=== PATIENT | female | born 1975 | race African-American/Black ===

== ENCOUNTER 2020-06-17 11:50 | Outpatient (CLI) | payer BC, SELFPAY ==
[2020-06-17 13:16] LABS: HIV 1/2 Ab P24 Ag Result Negative (Negative)
[2020-06-17 13:49] LABS: Hepatitis B Surface Antigen Negative (Negative)
[2020-06-17 13:54] LABS: HAV RESULT Negative (Negative); Hepatitis B Core IgM Result Negative (Negative)
[2020-06-17 14:06] LABS: Hepatitis C Virus Antibody Negative (Negative)
[2020-06-19 07:45] LABS: Rapid Plasma Reagin Non-Reactive (NonReactive)
== END 2020-06-17 11:51 | disposition home or self-care (01) ==
PROVIDERS: PCP Family Medicine; Visit Provider Obstetrics & Gynecology
DX: Z11.3 Encounter for screening for infections with a predominantly sexual mode of transmission (principal)
CPT/HCPCS: 36415; 80074; 86592; 86703; G0432

== ENCOUNTER 2020-06-24 08:11 | Outpatient (CLI) | payer BC, SELFPAY ==
--- NOTE | ~2020-06-24 | MM_ITS ---
EXAMINATION: MM screening beau BI w lena HISTORY: Screening mammogram TECHNIQUE: Craniocaudal and mediolateral oblique 3-D tomosynthesis images were obtained and synthetic 2-D images were generated. CAD analysis was submitted and interpreted. COMPARISON: No prior mammogram is available for comparison at this institution. BREAST PARENCHYMAL COMPOSITION: There are scattered areas of fibroglandular density. FINDINGS: There is an 8 millimeter low-density circumscribed mass situated posteriorly in the central right breast lateral to the mid sagittal plane (CC Tomosynthesis image 34/67). Diagnostic right mamm ogram and right breast ultrasound examination are recommended. Otherwise there is no evidence of suspicious mass, calcification, or architectural distortion to sugg est malignancy in either breast. change. IMPRESSION: 1. 8 mm circumscribed right breast mass 2. Diagnostic right mammogram and right breast ultrasound examination are recommended. BI-RADS Category 0: Incomplete: Needs additional imaging evaluation. Reviewed, dictated and finalized at location A. IMPRESSION: 1. 8 mm circumscribed right breast mass 2. Diagnostic right mammogram and right breast ultrasound examination are recom mended. BI-RADS Category 0: Incomplete: Needs additional imaging evaluation.
== END 2020-06-24 08:12 | disposition home or self-care (01) ==
PROVIDERS: PCP Family Medicine; Visit Provider Obstetrics & Gynecology
DX: Z12.31 Encounter for screening mammogram for malignant neoplasm of breast (principal); R92.8 Other abnormal and inconclusive findings on diagnostic imaging of breast
CPT/HCPCS: 77063; 77067

== ENCOUNTER 2020-07-13 16:48 | Outpatient (CLI) | payer BC, SELFPAY ==
[2020-07-13 17:06] LABS: Hematocrit 30.6 % (37.0-47.0); Hemoglobin 9.2 g/dL (12.0-15.0); Mean Corpuscular HGB Conc 30.1 g/dl (32-36); Mean Corpuscular Hemoglobin 21.6 pg (26-34); Platelet Count Result 380 k/mm3 (150-375); Red Blood Count 4.25 M/mm3 (4.2-5.4); Red Cell Distribution Width 15.3 % (11.5-14.5); White Blood Count 7.6 K/mm3 (4.5-10.0)
[2020-07-13 17:55] LABS: Free T4 Free Thyroxine 0.74 ng/mL (0.78-2.19)
== END 2020-07-13 16:49 | disposition home or self-care (01) ==
PROVIDERS: PCP Family Medicine; Visit Provider Obstetrics & Gynecology Gynecology
DX: N93.8 Other specified abnormal uterine and vaginal bleeding (principal)
CPT/HCPCS: 36415; 84146; 84439; 84443; 85027

== ENCOUNTER 2020-07-21 15:48 | Outpatient (CLI) | payer BC, SELFPAY ==
--- NOTE | ~2020-07-21 | US_ITS ---
EXAMINATION: US pelvic complete w TV EXAM DATE: 07/21/2020 16:22 INDICATION: Abnormal uterine bleeding. TECHNIQUE: Pelvic transabdominal and transvaginal sonogram was performed. There are multiple graysca le and Doppler images available for interpretation. There is no prior study for comparison. FINDINGS: Uterus measures 8.3 x 6.0 x 5.9 cm, is retroverted probably with 1.7 cm fibroid anteriorly . Endometrial stripe measures 11 mm, within normal limits. There are nabothian cysts. There is no free pelvic fluid. Right adnexa: The ovary measures 2.6 x 2.1 x 2.4 cm and is morphologically normal. Ovarian vascular f low confirmed. Left adnexa: The ovary measures 5.1 x 2.9 x 3.0 cm and contains a cystic lesion with small amount of layering protein within, could be hemorrhagic cyst or endometrioma, measuring 3.5 x 2.5 x 3.1 cm. Ova codie vascular flow confirmed. IMPRESSION: 1. Left ovarian small cystic lesion with some layering protein, most likely hemorrhagic cyst or endo metrioma. 2. Probable small fibroid. Reviewed, dictated and finalized at location A. IMPRESSION: 1. Left ovarian small cystic lesion with some layering protein, most likely he morrhagic cyst or endometrioma. 2. Probable small fibroid.
== END 2020-07-21 15:49 | disposition home or self-care (01) ==
PROVIDERS: PCP Family Medicine; Visit Provider Obstetrics & Gynecology
DX: N93.9 Abnormal uterine and vaginal bleeding, unspecified (principal)
CPT/HCPCS: 76830; 76856

== ENCOUNTER 2020-07-28 13:46 | Outpatient (CLI) | payer BC, SELFPAY ==
--- NOTE | ~2020-07-28 | MMUS_ITS ---
EXAMINATION: MM diagnostic mammo unilat RT, US breast RT complete HISTORY: Follow-up right breast asymmetry TECHNIQUE: Additional 3-D tomosynthesis images of the right breast were performed and synthetic 2-D i mages were generated. CAD analysis was submitted and interpreted. High resolution complete right [address] st ultrasound was performed. COMPARISON: 06/24/2020 BREAST PARENCHYMAL COMPOSITION: The breasts are heterogenously dense, which may obscure small masses. FINDINGS: MAMMOGRAPHIC FINDINGS: There is a small circumscribed mass in the upper outer quadrant of the right breast, middle third ulisses suring approximately 7 mm. There are no suspicious calcifications or architectural distortion. ULTRASOUND: Limited right breast ultrasound: At 11:00, 5 cm from the nipple, there is an oval hypoechoic mass ulisses suring 3 mm with low-level internal echoes. Parallel orientation, no posterior features or internal v ascularity. 12:00, 5 cm from the nipple, there is an oval hypoechoic mass measuring 7 mm maximum dime nsion with low level heterogeneous internal echotexture. No significant posterior features or interna l vascularity. IMPRESSION: 1. Probable benign right breast masses. 2. Recommend 6 month follow-up diagnostic right mammogram and limited ultrasound. BI-RADS Category 0: Incomplete: Needs additional imaging evaluation. Reviewed, dictated and finalized at location A. IMPRESSION: 1. Probable benign right breast masses. 2. Recommend 6 month follow-up diagnostic right mammogram and limited ultrasoun d. BI-RADS Category 0: Incomplete: Needs additional imaging evaluation.
== END 2020-07-28 13:47 | disposition home or self-care (01) ==
PROVIDERS: PCP Family Medicine; Visit Provider Obstetrics & Gynecology
DX: R92.8 Other abnormal and inconclusive findings on diagnostic imaging of breast (principal)
CPT/HCPCS: 76641; 77061; 77065; G0279